=== PATIENT | female | born 1995 | race Caucasian/White ===

== ENCOUNTER 2022-11-16 03:12 | Outpatient (CLI) | payer BC ==
[2022-11-16] MEDS ORDERED: AZITHROMYCIN 500 MG TAB PO ONE (04:00)
[2022-11-16] MEDS ORDERED: AMPICILLIN 2,000 MG in SODIUM CHLORIDE 0.9% 100 ML IVPB ONE (04:00)
[2022-11-16] MEDS ORDERED: BETAMET ACET-BETAMETH SOD PHOS 6 MG/ML MDV IM SCH (04:00)
[2022-11-16] MEDS ORDERED: LACTATED RINGERS 1,000 ML IV SCH (04:00)
--- NOTE | 2022-11-16 04:26 | P.HPOB ---
History of Present Illness H&P Date: 11/16/22 Chief Complaint: IUP 34 5/7 weeks, PPROM This is a 27 yo at 34 5/7 weeks, EDC 8/ based on LMP and c/w 7 week US. She presents to labor and delivery with complaints of rupture of membranes around 1:30 AM. She states she woke up in a pool of clear fluid, once in OB tr iage rupture of membranes was confirmed. Patient denies contractions. She notes good movement. She has been receiving routine care with has been essentially uncomplicated. On bloodwork this patient is a blood type of B+, rubella status immune, hep B surface antigen negative, RPR is nonreactive, HIV is negative. Review of Systems Constitutional: Denies chills, Denies fatigue, Denies fever Ears, nose, mouth and throat: Denies headache Cardiovascular: Reports leg edema Respiratory: Denies dyspnea Gastrointestinal: Denies constipation, Denies diarrhea, Denies nausea, Denies vomiting Genitourinary: Reports Past Medical History History of Any Multi-Drug Resistant Organisms: None Reported Smoking Status: Never smoker Medications and Allergies Allergies Allergy/AdvReac Type Severity Reaction Status Date / Time No Known Allergies Allergy Verified 11/16/22 03:20 Exam Osteopathic Statement: *. No significant issues noted on an osteopathic structural exam other than those noted in the History and Physical/Consult. Intake and Output 11/15/22 11/15/22 11/16/22 14:59 22:59 06:59 Other: Weight 84.368 kg Targeted physical exam is performed in this date and lay health advocate a well-nourished well-developed female in no acute distress, breathing is nonlabored, heart has a regular rate and rhythm, abdomen is gravid and appropriate for gestational age, on cervical exam she is closed and confirmed rupture of membranes via amnisure, vertex presentation by ultrasound. heart tones returned be category 1 and she is not rosanna. Assessment and Plan (1) 34 weeks gestation of Current Visit: Yes Status: Acute Code(s): Z3A.34 - 34 WEEKS GESTATION OF SNOMED Code(s): 37506290 (2) premature rupture of membranes Current Visit: Yes Status: Acute Code(s): O42.919 - PRETRM LUZ ELENA ROM, UNSP TIME BETW RUPT AND ONST LABR, UNSP TRI SNOMED Code(s): 930478169 Plan: 27-year-old at 34-5/7 weeks, estimated due date of 12/23, based on last menstrual period and consistent with 7 week ultrasound. Patient presents with complaints of rupture of membranes confirmed in OB triage. Clear fluid noted at 1:30 AM. Given patient's gestational age transfer to tertiary care facility is initiated. Patient is counseled on need for transfer given gestational age, although tearful she states understanding. Risks of prematurity are reviewed.
[2022-11-16 06:28] VITALS: BP 140/87; PULSE 112; RESP 16; TEMP 98.2
== END 2022-11-16 05:44 | disposition other institution (70) ==
LOC: FBPOP 03:12
PROVIDERS: ATTEND Obstetrics & Gynecology Obstetrics
DX: O42.913 Preterm premature rupture of membranes, unspecified as to length of time between rupture and onset of labor, third trimester (principal); Z3A.34 34 weeks gestation of pregnancy
CPT/HCPCS: 59025; 99214; 96361; 96365; 96372; 84112; J0290; J0702

== ENCOUNTER 2024-01-27 14:26 | Outpatient (CLI) | payer BC ==
[2024-01-27] MEDS: BETAMET ACET-BETAMETH SOD PHOS 6 MG/ML MDV IM SCH (14:56)
--- NOTE | 2024-03-10 10:15 | P.MSEPDOC ---
Presenting Problems - Arrival Data Date of Arrival on Unit: 01/27/24 Time of Arrival on Unit: 14:26 Mode of Transport: Ambulatory - Complaint OB-Reason for Admission/Chief Complaint: Other Comment: Pt sent from office with written orders per Dr. Esqueda for dose of celestone. Medical History - Information : 2 Para: 1 : 1 Abortions: Spontaneous or Elective: 0 Number of Living Children: 1 - Gestational Age Gestational Age by ADITHYA (wks/days): 35 Weeks and 0 Days Review of Systems - Review of Systems Constitutional: No problems Breast: No problems ENT: No problems Cardiovascular: No problems Respiratory: No problems Gastrointestinal: No problems Genitourinary: No problems Musculoskeletal: No problems Neurological: No problems Skin: No problems Physician Notification - Physician Notified Physician Notified Date: 01/27/24 Physician Notified Time: 14:26 Physician: Emilie Esqueda New Order Received: No - Notification Comment Comment: Pt sent from office with written orders per Dr. Esqueda for celestone. Maternal Triage Index - Scheduled/Requesting Priority 5 Scheduled/Requesting Priority 5: Yes Criteria Met for Priority 5: Pt sent from office with written order per Dr. Esqueda for dose of celestone. Disposition - Disposition OB Disposition: Discharge to home Discharge Date: 01/27/24 Discharge Time: 15:03 I agree with the RN Medical Screening Exam: Yes Case reviewed; plan agreed upon as documented in EMR&OBIX.: Yes Diagnosis: FALSE LABOR BEFORE 37 COMPLETED WEEKS OF GEST, THIRD TRI
== END 2024-01-27 15:00 | disposition home or self-care (01) ==
LOC: FBPOP 14:26
PROVIDERS: ATTEND Obstetrics & Gynecology Obstetrics

== ENCOUNTER 2024-02-08 02:28 | Inpatient (IN) | payer BC ==
[2024-02-08] MEDS ORDERED: OXYTOCIN 10 UNIT/ML 1 ML VIAL IM PRN (03:02)
[2024-02-08] MEDS ORDERED: TERBUTALINE 1 MG/ML VIAL SQ PRN (03:02)
[2024-02-08] MEDS ORDERED: TRANEXAMIC 1,000 MG/100ML-NACL 1,000 MG in EMPTY BAG 1 BAG IV PRN (03:02)
[2024-02-08] MEDS ORDERED: miSOPROStoL 200 MCG TAB RECTAL PRN (03:02)
[2024-02-08] MEDS ORDERED: METHYLERGONOVINE 0.2 MG/ML 1 ML AMP IM PRN (03:02)
[2024-02-08] MEDS ORDERED: miSOPROStoL 200 MCG TAB PO PRN (03:02)
[2024-02-08] MEDS ORDERED: LIDOCAINE 0.5% (PF) 5 MG/ML (50 ML SDV) SQ PRN (03:02)
[2024-02-08] MEDS ORDERED: CARBOPROST TROMETHAMINE 250 MCG/ML 1 ML AMP IM PRN (03:02)
[2024-02-08] MEDS: LACTATED RINGERS 1,000 ML IV SCH (03:10)
[2024-02-08] MEDS ORDERED: OXYTOCIN 30 UNITS/500 ML NS 30 UNIT in SALINE 1 500ML.BAG IV SCH (03:15)
[2024-02-08] MEDS: AMPICILLIN 2,000 MG in SODIUM CHLORIDE 0.9% 100 ML IVPB STA (03:34)
[2024-02-08 03:37] LABS: Basophils # (A) 0.1 k/uL (0-0.2); Basophils % (A) 0 %; Eosinophils # (A) 0.1 k/uL (0-0.7); Eosinophils % (A) 1 %; HCT 33.8 % (34.0-46.0); HGB 11.7 gm/dL (11.4-16.0); Lymphocytes # (A) 2.7 k/uL (1.0-4.8); Lymphocytes % (A) 24 %; MCH 31.1 pg (25.0-35.0); MCHC 34.6 g/dL (31.0-37.0); Mean Platelet Volume 9.9; Monocytes # (A) 0.8 k/uL (0-1.0); Monocytes % (A) 6 %; Neutrophils # (A) 7.8 k/uL (1.3-7.7); Neutrophils % (A) 67 %; Platelet Count 158 k/uL (150-450); RBC 3.76 m/uL (3.80-5.40); RDW 12.1 % (11.5-15.5); WBC 11.6 k/uL (3.8-10.6)
[2024-02-08] MEDS: OXYTOCIN 30 UNITS/500 ML NS 30 UNIT in SALINE 1 500ML.BAG IV SCH (06:25)
[2024-02-08] MEDS: AMPICILLIN 1,000 MG in SODIUM CHLORIDE 0.9% 50 ML IVPB SCH (07:33)
[2024-02-08] MEDS ORDERED: fentaNYL (PF) 50 MCG/ML 5 ML AMP ONE (08:06)
[2024-02-08] MEDS ORDERED: SODIUM CHLORIDE 0.9% 250 ML BAG ONE (08:06)
[2024-02-08] MEDS ORDERED: ROPIVACAINE 5 MG/ML 30 ML VIAL ONE (08:06)
[2024-02-08] MEDS: BENZOCAINE/MENTHOL SPRAY 1 GM/SPRAY AEROSOL TOPICAL PRN (13:50)
--- NOTE | 2024-02-08 13:55 | P.HPOB ---
History of Present Illness H&P Date: 02/08/24 Chief Complaint: IUP at 36 4/7 weeks, PROM This is a 28-year-old 2 para 0-1-0-1 at 36-4/7 weeks that presents to labor and delivery with complaints of rupture of membranes. Patient noted fluid to be clear in nature. Patient has been receiving routine care which has been essentially uncomplicated. Patient does have a history of a 34-week delivery secondary to PPROM. Patient was transferred to a tertiary care center and had a normal spontaneous vaginal delivery of that . Patient was noted to be positive for Ureaplasma and that was thought to be the reason for her PPROM. She has been tested multiple times through this and was no mahamed to be positive and then was placed on azithromycin 250 mg daily. Patient does note good movement on admission. 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, P1 #1 premature rupture of membranes at 34-5/7 weeks, normal spontaneous vaginal delivery #2 current Review of Systems Constitutional: Denies chills, Denies fatigue, Denies fever Ears, nose, mouth and throat: Denies headache Cardiovascular: Reports leg edema Respiratory: Denies dyspnea Gastrointestinal: Denies nausea, Denies vomiting Genitourinary: Reports Past Medical History Past Medical History: No Reported History History of Any Multi-Drug Resistant Organisms: None Reported Past Surgical History: No Surgical Hx Reported Past Anesthesia/Blood Transfusion Reactions: No Reported Reaction Past Psychological History: No Psychological Hx Reported Smoking Status: Never smoker Past Alcohol Use History: None Reported Past Drug Use History: None Reported Medications and Allergies Home Medications Medication Instructions Recorded Confirmed Type Vit No.179/Iron/Folic 1 tab PO ONCE 01/27/24 02/08/24 History [ Tablet] Azithromycin [Zithromax] 1 gm PO 02/08/24 History Allergies Allergy/AdvReac Type Severity Reaction Status Date / Time No Known Allergies Allergy Verified 01/28/24 15:11 Exam Osteopathic Statement: *. No significant issues noted on an osteopathic structural exam other than those noted in the History and Physical/Consult. Vital Signs Temp Pulse Resp BP Pulse Ox 02/08/24 03:02 97.7 F 100 15 128/79 98 02/08/24 02:32 97.7 F 100 16 128/79 98 Intake and Output 02/07/24 02/08/24 02/08/24 22:59 06:59 14:59 Other: Weight 84.368 kg Targeted physical exam is performed this date General Is a well-nourished well- developed female in no acute distress, breathing is nonlabored, heart is a regular rate and rhythm, abdomen is gravid and appropriate for gestational age, on cervical exam she is currently 4 cm per RN upon admission she was noted to be grossly ruptured. heart tones have noted to be category 1 and she is rosanna every 3-4 minutes. Results Result Diagrams: 02/08/24 03:11 Abnormal Lab Results - Last 24 Hours (Table) 02/08/24 Range/Units 03:11 WBC 11.6 H (3.8-10.6) k/uL RBC 3.76 L (3.80-5.40) m/uL Hct 33.8 L (34.0-46.0) % Neutrophils # 7.8 H (1.3-7.7) k/uL Assessment and Plan (1) 36 to 37 weeks gestation of Current Visit: Yes Status: Acute Code(s): YXI3994 - SNOMED Code(s): 688620784 (2) PROM (premature rupture of membranes) Current Visit: Yes Status: Acute Code(s): O42.90 - LUZ ELENA ROM, 7TH0 BETW RUPT & ONST LABR, UNSP WEEKS OF GEST SNOMED Code(s): 38552019 Plan: 28-year-old 2 para 0-1-0-1 at 36-4/7 weeks that presents with PROM. Patient denied contractions upon admission. Patient is admitted to labor and delivery and IV antibiotics are begun. GBS culture is pending currently. Pitocin augmentation of labor was begun in addition.
--- NOTE | 2024-02-08 13:56 | P.PROBDLV ---
Vaginal Delivery Note - . Vaginal Delivery Note: 28-year-old 2 para 1 at 36-4/7 weeks that presented to labor and delivery at 36-4/7 weeks with complaints of rupture of membranes around 1 AM. Patient noted fluid to be clear in nature. Patient was admitted and Pitocin augmentation of labor was begun around 6 AM. Patient has made good progress through the day and labor. Patient progressed to complete began pushing and had a normal spontaneous vaginal delivery of a viable female infant at 1342, weight is pending. After 2-minute delay the umbilical cord was doubly clamped and cut and the placenta was delivered spontaneously intact with a three-vessel cord. Spontaneous cry was noted at . Bladder was drained for approximately 200 cc of clear yellow urine. Estimated blood loss 100 cc. Uterus was noted to be firm below the umbilicus after delivery of placenta. All counts were noted correct x 2. Patient and infant tolerated delivery well and are resting comfortably.
[2024-02-08] MEDS ORDERED: diphenhydrAMINE 50 MG/ML 1 ML VIAL IVP PRN ×2 (14:02)
[2024-02-08] MEDS ORDERED: diphenhydrAMINE 25 MG CAP PO PRN (14:02)
[2024-02-08] MEDS ORDERED: diphenhydrAMINE 50 MG CAP PO PRN (14:02)
[2024-02-08] MEDS ORDERED: HYDROCORTISONE 2.5% RECTAL CREAM 30 GM TUBE RECTAL PRN (14:02)
[2024-02-08] MEDS ORDERED: LANOLIN CREAM 1 GM TUBE TOPICAL PRN (14:02)
[2024-02-08] MEDS ORDERED: ZOLPIDEM 5 MG TAB PO PRN (14:02)
[2024-02-08] MEDS ORDERED: SIMETHICONE 80 MG CHEWABLE PO PRN (14:02)
[2024-02-08 14:09] VITALS: RESP 16
[2024-02-08] MEDS: IBUPROFEN 600 MG TAB PO SCH (15:09)
[2024-02-08] MEDS: PRENATAL VIT-IRON-FOLIC ACID 1 EACH TABLET PO ONE (20:06)
[2024-02-08] MEDS: SENNOSIDES-DOCUSATE SODIUM 1 EACH TAB PO SCH (21:49)
[2024-02-09] MEDS: ACETAMINOPHEN TAB 325 MG TAB PO PRN (00:42)
[2024-02-09 08:36] VITALS: BP 109/69; PULSE 84; TEMP 98.1
--- NOTE | 2024-02-09 12:58 | P.DS ---
Providers Date of admission: 02/08/24 02:46 Expected date of discharge: 02/09/24 Attending physician: Emilie Esqueda Primary care physician: Stated None - Discharge Diagnosis(es) (1) 36 to 37 weeks gestation of Current Visit: Yes Status: Acute (2) PROM (premature rupture of membranes) Current Visit: Yes Status: Acute (3) Vaginal delivery Current Visit: Yes Status: Acute Hospital Course: A 28-year-old G2 now P0202 that presented to labor and delivery with complaints of premature rupture of membranes patient delivered a viable female infant at 1342, weight of 6 pounds 9.8 ounces. Patient did not sustain any vaginal lacerations during delivery. Patient has done well . On this day #1 she is ambulating and voiding without difficulty. She is tolerating a regular diet without nausea or vomiting. States her pain is well- controlled. She would like discharge home at 24 hours of possible.. No nursing routine care with myself and has been essentially uncomplicated. Agueda feng had a prior delivery at 34+ weeks secondary to PPROM. Patient had tested positive for Ureaplasma at that time. Patient has been tested multiple times throughout this was noted to be positive as well. Patient has been treated with azithromycin 250 mg daily. For full details on this patient please see the dictated history and physical. Patient was admitted to labor and delivery and Pitocin augmentation of labor was begun. Patient made good progress and did eventually request epidural. Epidural was placed without difficulty by the anesthesia department. Patient made good progress toward complete. Once completely dilated patient began pushing and had normal spontaneous vaginal delivery of a viable female at 1342, weight of 6 pounds 9.8 ounces. No vaginal lacerations were appreciated during delivery. Patient's course has been uneventful. This day 1 she is ambulating and voiding without difficulty. She is tolerating a regular diet without nausea or vomiting. States her pain is well-controlled. She would like discharge home at 24 hours. Patient Condition at Discharge: Good Plan - Discharge Summary New Discharge Prescriptions: No Action Azithromycin [Zithromax] 1 gm PO Vit No.179/Iron/Folic [ Tablet] 1 tab PO ONCE Discharge Medication List Vit No.179/Iron/Folic [ Tablet] 1 tab PO ONCE 01/27/24 [History] Azithromycin [Zithromax] 1 gm PO 02/08/24 [History] Follow up Appointment(s)/Referral(s): Emilie Esqueda DO [Doctor of Osteopathic Medicine] - 03/21/24 1:00 pm Patient Instructions/Handouts: Vaginal Delivery (GEN), Vaginal Delivery (DC) Activity/Diet/Wound Care/Special Instructions: SR course until 6 weeks . [id number] ibuprofen 600 mg or 3 tablets every 6 hours as needed for pain. Discharge Disposition: HOME SELF-CARE
== END 2024-02-09 14:35 | disposition home or self-care (01) | DRG 805 ==
LOC: FBPOP 02:28 → 4FBP 02:46
PROVIDERS: ADMIT Obstetrics & Gynecology Obstetrics; ATTEND Obstetrics & Gynecology Obstetrics
PROC: 10E0XZZ Delivery of Products of Conception, External Approach (ICD-10-PCS; principal; 2024-02-08)
DX: O42.913 Preterm premature rupture of membranes, unspecified as to length of time between rupture and onset of labor, third trimester (principal); O75.3 Other infection during labor; Z37.0 Single live birth; B96.89 Other specified bacterial agents as the cause of diseases classified elsewhere; Z79.2 Long term (current) use of antibiotics; Z28.310 Unvaccinated for COVID-19; Z3A.36 36 weeks gestation of pregnancy
CPT/HCPCS: 59025; 85025; 86850; 86900; 86901; 99213